=== PATIENT | female | born 1950 | race Caucasian/White ===

== ENCOUNTER 2017-11-19 09:39 | Outpatient (CLI) | payer MEDICARE, OTHER | END 2017-11-19 09:40 | disposition home or self-care (01) | LOC: BICMAMMO 09:39 | PROVIDERS: ATTEND Family Medicine | DX: M81.0 Age-related osteoporosis without current pathological fracture (principal); M85.852 Other specified disorders of bone density and structure, left thigh | CPT/HCPCS: 77080 ==

== ENCOUNTER 2018-08-05 09:58 | Outpatient (CLI) | payer MEDICARE, OTHER ==
--- NOTE | 2018-08-05 12:52 | CT ---
CT ABDOMEN WITH CONTRAST: INDICATIONS: Acute pancreatitis. COMPARISON: Noncontrast CT abdomen from 12/18/2016. TECHNIQUE: Multiple axial tomograms obtained through the abdomen with IV enhancement. Oral contrast was given. FINDINGS: The lung base is clear. The liver and spleen are unremarkable. The pancreas is unremarkable. There is no evidence of inflammatory change involving the pancreas. N o evidence of pseudocyst or fluid collection. No evidence of edema. Prior exam described a hyperdense, exophytic lesion from the superior left kidney, which measured 1 c m on the prior study. This lesion is again seen on the current study. While this lesion is low atte nuation, it is of higher density that expected for a simple cyst, with Hounsfield units recorded at 7 2. This lesion is slightly larger today, measuring 1.2 cm. Continued followup of this lesion is rec ommended. There is a larger cystic lesion, superior left kidney, which measures up to 2.8 cm. This lesion has densities more consistent with cysts. A calcification along its inferior border was noted on the cara or noncontrast study, making this a slightly complex lesion as well. Another tiny 0.7 cm cyst from the superior left kidney is again noted. The small bowel loops appear of normal caliber. The visualized bowel is otherwise unremarkable. The aorta is of normal caliber. No adenopathy apparent. IMPRESSION: 1. No evidence of pancreatitis by CT. 2. Complex lesions from the superior left kidney. A complex, high dense, exophytic lesion of the damico perior left kidney is slightly larger today. Continued followup is recommended. Suggest repeat abdo anastasia CT in six months to re-evaluate these lesions. POS: RENEE
== END 2018-08-05 09:59 | disposition home or self-care (01) ==
LOC: BICCT 09:58
PROVIDERS: ATTEND Internal Medicine Gastroenterology
DX: K86.1 Other chronic pancreatitis (principal); N28.89 Other specified disorders of kidney and ureter
CPT/HCPCS: 74160; 82565

== ENCOUNTER 2019-02-10 08:06 | Outpatient (CLI) | payer MEDICARE, OTHER ==
--- NOTE | 2019-02-10 10:04 | CT ---
CT ABDOMEN WITH AND WITHOUT IV CONTRAST: HISTORY: Cyst of kidney. COMPARISON: 08/05/2018 and 12/18/2016 FINDINGS: The lung bases are unremarkable. The liver, spleen, pancreas, and adrenal glands are normal. No uriel cified gallstones are seen. Calcified splenic artery aneurysm is stable. There are nonobstructing left renal calculi. No calculi are seen in the right kidney or in the visua lized portions of the ureters. No hydronephrosis is seen on either side. The exophytic 1.2 cm hyper dense mass is stable and demonstrates no post contrast enhancement, likely hemorrhagic cyst. The oth er low density lesions in the kidneys are stable. The nonenhancing 2.8 cm cystic lesion in the super ior pole of the left kidney is stable. No free air, free fluid, or lymphadenopathy is seen in the abdomen. There are vascular calcification s without evidence of aneurysmal dilatation of the abdominal aorta. There are degenerative changes o f the spine. IMPRESSION: Stable examination. POS: RENEE
[2019-02-10] MEDS ORDERED: ISOVUE-370 76%-LOCM 1 ML ONE (13:41)
== END 2019-02-10 08:07 | disposition home or self-care (01) ==
LOC: BICCT 08:06
PROVIDERS: ATTEND Urology
DX: N28.1 Cyst of kidney, acquired (principal)
CPT/HCPCS: 74170; 82565; Q9966

== ENCOUNTER 2020-03-01 08:46 | Outpatient (CLI) | payer MEDICARE, OTHER ==
--- NOTE | 2020-03-01 10:20 | CT ---
CT ABDOMEN WITH AND WITHOUT IV CONTRAST 03/01/2020 CLINICAL INFORMATION: Follow-up renal cyst COMPARISON: 02/10/2019 and 08/05/2018 Technique: Multiple contiguous axial CT images are obtained through the abdomen and pelvis with IV contrast. Cor onal reformatted images are provided. FINDINGS: Lower Chest: Mild dependent bibasilar atelectasis. Vessels: Vascular calcifications are again seen. There is a peripherally calcified splenic artery ane urysm measuring 1.8 cm which is stable in size. This is also similar in size to study in 2015. Abdomen: Portal vein:Patent Gallbladder: Within normal limits for CT imaging. Liver: within normal limits. Spleen: within normal limits. Pancreas: within normal limits. Adrenals: within normal limits. Kidneys: Right kidney again demonstrates a normal CT appearance. Stable subcentimeter too small to ch aracterize hypodense lesions are again seen scattered in the left kidney. A 2.4 cm fluid attenuation cystic lesion is again seen in the superior pole left kidney with calcifications again se en in the inferior wall of the cyst similar to prior study. The closely adjacent exophytic cystic lesion medial aspect superior pole left kidney is also again seen. This lesion demonstrated increased density on the prior study but is less dense on today's examination and has more fluid attenuation. There is also a 1.3 cm increased density lesion seen in the anterior aspect midportion l eft kidney suggesting a Bosniak type II renal cystic lesion. No enhancing renal lesion is appreciated. There are stable nonobstructing inferior pole left renal calculi. Bowel: Normal caliber. Appendix: The appendix is visualized and normal in caliber. Peritoneum: No ascites or free air; no fluid collection. Mesentery and Retroperitoneum: No enlarged mesenteric or retroperitoneal lymph nodes. Abdominal Wall: Tiny fat-containing umbilical hernia is again present. Bones: within normal limits. IMPRESSION: 1. Subcentimeter too small to characterize hypodense lesions left kidney in addition to left renal cy st. Exophytic hyperdense lesion on the prior study demonstrates lower density on today's examination with more fluid density and is suggestive of a cyst. A Bosniak type II cystic renal lesio n is seen in the anterior aspect midportion left kidney. No enhancing renal mass is seen. Calcifications are seen at the inferior aspect of the larger superior pole left renal cyst which is a stable finding. 2. Nonobstructing left renal calculi. 3. Stable peripherally calcified splenic artery aneurysm.
[2020-03-01] MEDS ORDERED: Iopamidol-370 76% 500 ML 1 ML ONE (15:12)
== END 2020-03-01 08:47 | disposition home or self-care (01) ==
LOC: BICCT 08:46
PROVIDERS: ATTEND Urology
DX: N28.1 Cyst of kidney, acquired (principal); N28.89 Other specified disorders of kidney and ureter; N20.0 Calculus of kidney; I71.4 Abdominal aortic aneurysm, without rupture
CPT/HCPCS: 74170; 82565; Q9967

== ENCOUNTER 2022-02-25 13:37 | Outpatient (CLI) | payer MEDICARE, OTHER | END 2022-02-25 13:38 | disposition home or self-care (01) | LOC: BICULT 13:37 | PROVIDERS: ATTEND Urology | DX: N39.0 Urinary tract infection, site not specified (principal) | CPT/HCPCS: 76770 ==

== ENCOUNTER 2022-11-28 12:55 | Outpatient (CLI) | payer MEDICARE, OTHER | END 2022-11-28 12:56 | disposition home or self-care (01) | LOC: BICCT 12:55 | PROVIDERS: ATTEND Nurse Practitioner Family | DX: N20.0 Calculus of kidney (principal); R31.29 Other microscopic hematuria | CPT/HCPCS: 74176 ==

== ENCOUNTER 2023-03-04 12:09 | Outpatient (CLI) | payer MEDICARE, OTHER | END 2023-03-04 12:10 | disposition home or self-care (01) | LOC: BICULT 12:09 | PROVIDERS: ATTEND Urology | DX: N28.1 Cyst of kidney, acquired (principal); N20.0 Calculus of kidney | CPT/HCPCS: 76770 ==

== ENCOUNTER 2023-06-06 13:27 | Outpatient (CLI) | payer MEDICARE, OTHER ==
[~2023-06-06 13:27] MED LIST: Iopamidol 370 76% 100 ML VIAL ONE
== END 2023-06-06 13:28 | disposition home or self-care (01) ==
LOC: BICCT 13:27
PROVIDERS: ATTEND Urology
DX: N28.1 Cyst of kidney, acquired (principal); N20.0 Calculus of kidney; J98.4 Other disorders of lung
CPT/HCPCS: 74170; 82565; Q9967

== ENCOUNTER 2023-12-03 10:02 | Outpatient (CLI) | payer MEDICARE, OTHER | END 2023-12-03 10:03 | disposition home or self-care (01) | LOC: BICCT 10:02 | PROVIDERS: ATTEND Urology | DX: N20.0 Calculus of kidney (principal); N28.1 Cyst of kidney, acquired; K57.30 Diverticulosis of large intestine without perforation or abscess without bleeding; J98.4 Other disorders of lung | CPT/HCPCS: 74176 ==

== ENCOUNTER 2025-05-24 13:32 | Outpatient (CLI) | payer MEDICARE, OTHER ==
[2025-05-24 13:56] LABS: Estimated GFR - POC 53.0
== END 2025-05-24 13:33 | disposition home or self-care (01) ==
LOC: CT 13:32
PROVIDERS: ATTEND Urology
DX: N28.1 Cyst of kidney, acquired (principal); N20.0 Calculus of kidney; J98.4 Other disorders of lung; I70.0 Atherosclerosis of aorta
CPT/HCPCS: 36415; 74170; 82565; Q9967

== ENCOUNTER 2025-06-22 09:59 | Emergency (ER) | payer MEDICARE, OTHER ==
[2025-06-22] MEDS ORDERED: hydrALAZINE 20 MG/ML VIAL ONE (12:51)
[2025-06-22 12:57] LABS: #Basophils 0.05 10x3/uL (0.0-0.2); #Eosinophils 0.07 10x3/uL (0.0-0.7); #Monocytes 0.33 10x3/uL (0.11-0.59); #Neutrophils 4.83 10x3/uL (1.40-6.50); %Basophils 0.7 % (0.0-1.0); %Eosinophils 1.0 % (0.0-10.0); %Lymphocytes 24.1 % (21.0-51.0); %Monocytes 4.7 % (0.0-10.0); %Neutrophils 68.9 % (42.0-75.0); Hematocrit 44.1 % (36.0-47.0); Hemoglobin 15.2 g/dL (12.0-16.0); Mean Corpuscular Hemoglobin 30.5 pg (27.0-31.0); Mean Corpuscular Volume 88.6 fL (78.0-98.0); Platelet Count 211 10x3/uL (130-400); Red Blood Cell (RBC) Count 4.98 mill/uL (4.20-5.40); White Blood Cell (WBC) Count 7.01 10x3/uL (4.8-10.8)
[2025-06-22 13:13] LABS: ALT (SGPT) 12 U/L (Less than 34); AST (SGOT) 26 U/L (11-34); Albumin 4.4 g/dL (3.1-4.5); Alkaline Phosphatase 77 U/L (40-110); Anion Gap 15 mmol/L (10-20); BUN (Urea Nitrogen) 15 mg/dL (9.8-20.1); Bilirubin, Total 0.7 mg/dL (0.3-1.2); Calc. Creatinine Clearance 0 mL/min (70-130); Calcium 10.2 mg/dL (7.8-10.44); Carbon Dioxide 27 mmol/L (23-31); Chloride 108 mmol/L (98-107); Globulin 2.6 g/dL (2.4-3.5); Glucose 117 mg/dL (83-110); Potassium 4.1 mmol/L (3.5-5.1); Sodium 146 mmol/L (136-145)
[2025-06-22 14:21] LABS: Bacteria/HPF None Seen HPF (None Seen); CAUTI Indications for Culture Dysuria,urgency,freq; Glucose, Urine (Dipstick) Normal (Negative); Leukocyte Negative Leu/uL (Negative); Protein, Urine (Dipstick) Negative (Neg-Trace); RBC/HPF 0-3 HPF (0-3); Specific Gravity, Urine 1.012 (1.002-1.036); WBC/HPF 0-3 HPF (0-3)
[2025-06-22 14:23] LABS: Urine Culture Reflex No No
[2025-06-22] MEDS ORDERED: Enoxaparin 80 MG (0.8 mL) SYRINGE ONE (15:00)
== END 2025-06-22 15:43 | disposition home or self-care (01) ==
LOC: ERS 09:59
DX: I82.413 Acute embolism and thrombosis of femoral vein, bilateral (principal); I10 Essential (primary) hypertension; E78.5 Hyperlipidemia, unspecified; Z79.899 Other long term (current) drug therapy
CPT/HCPCS: 70450; 71275; 74177; 81001; 84484; 85303; 85306; 93005; 93970; J0360; J1650; 80053; 84443; 85025; 96372; 96374